=== PATIENT | male | born 1970 | race Caucasian/White ===

== ENCOUNTER 2017-09-24 19:01 | Inpatient (IN) | payer BC, OTHER ==
[~2017-09-24] VITALS: Ht 177.8 cm; Wt 62.3 kg
[2017-09-24 19:10] VITALS: BP_SYST 102
[2017-09-24] MEDS ORDERED: NACL 0.9% 1,000 ML IV ONE (21:09)
[2017-09-24] MEDS ORDERED: ALBUTEROL SULFATE 0.083% 2.5 MG/3 ML VIAL.NEB INH ONE (21:15)
[2017-09-24 21:39] LABS: HEMATOCRIT 41.7 % (36-54); HEMOGLOBIN 13.5 g/dL (14.0-18.0); MEAN CORPUSCULAR HEMOGLOBIN 30 pg (27-31); MEAN CORPUSCULAR HGB CONC 33 % (32-36); MEAN CORPUSCULAR VOLUME 92 fL (79.0-98.0); PLATELET COUNT (AUTO) 410 K/uL (130-430); RED BLOOD CELL COUNT(AUTO) 4.55 MIL/uL (4.2-6.2); RED CELL DISTRIBUTION WIDTH 13.1 % (9.0-15.0); WHITE BLOOD COUNT (AUTO) 23.5 K/uL (4.8-10.8)
[2017-09-24] MEDS ORDERED: ARTT OP (21:40)
[2017-09-24] MEDS ORDERED: LANS30CA56 PO (21:41)
[2017-09-24] MEDS ORDERED: CHLO473M5 MM (21:42)
[2017-09-24] MEDS ORDERED: GABA-533 PO (21:43)
[2017-09-24] MEDS ORDERED: LEVOFLOXACIN 500 MG/D5W 100 ML IV ONE (21:45)
[2017-09-24] MEDS ORDERED: VANCOMYCIN HCL 1,000 MG in NS 250 ML IV ONE (21:45)
[2017-09-24] MEDS ORDERED: B1/B1TAB5 PO (21:45)
[2017-09-24] MEDS ORDERED: [UNRECOGNIZED DRUG - CODE] PO (21:50)
[2017-09-24 21:52] LABS: CALCIUM 9.5 mg/dL (8.4-11.0); CREATININE 0.51 mg/dL (0.55-1.30); POTASSIUM 4.4 mmol/L (3.5-5.1)
[2017-09-24 21:58] LABS: ALBUMIN 2.9 g/dL (3.4-4.8); TOTAL BILIRUBIN 0.3 mg/dL (0.0-1.0)
[2017-09-24] MEDS ORDERED: VITA100T3 PO (21:59)
[2017-09-24] MEDS ORDERED: UBID50TA3 PO (22:02)
[2017-09-24] MEDS ORDERED: OMEG10006 PO (22:03)
[2017-09-24] MEDS ORDERED: RIVA20TA PO (22:04)
[2017-09-24] MEDS ORDERED: POLY17PO4 PO (22:05)
[2017-09-24] MEDS ORDERED: PROP20TA7 PO (22:06)
[2017-09-24] MEDS ORDERED: ACET-2165 PO ×2 (22:09→22:10)
[2017-09-24] MEDS ORDERED: MAGN400O4 PO (22:11)
[2017-09-24] MEDS ORDERED: DULR10 RC (22:13)
[2017-09-24] MEDS ORDERED: MECL12.584 PO (22:14)
[2017-09-24] MEDS ORDERED: VANCOMYCIN HCL 1000 MG/VIAL IV ONE (22:15)
[2017-09-24] MEDS ORDERED: LACT10SO6 PO (22:15)
[2017-09-24] MEDS ORDERED: ONDA4TAB5 PO (22:16)
[2017-09-24] MEDS ORDERED: [UNRECOGNIZED DRUG - CODE] IH (22:19)
[2017-09-24] MEDS ORDERED: HYDR-1189 PO (22:21)
[2017-09-24] MEDS ORDERED: CLON1TAB4 PO (22:22)
[2017-09-24] MEDS ORDERED: MAG-55 PO (22:22)
[2017-09-24] MEDS ORDERED: ZOLP5TAB2 PO (22:23)
[2017-09-24] MEDS ORDERED: ALBU2.5V7 INH (22:23)
[2017-09-24] MEDS ORDERED: [UNRECOGNIZED DRUG - OTHER] PO (22:24)
[2017-09-24 22:30] LABS: BAND % (MANUAL) 8 % (0-6); BASOPHILS % (MANUAL) 0 % (0-2); EOSINOPHILS % (MANUAL) 2 % (0-7); LYMPHOCYTES % (MANUAL) 5 % (20-46); MONOCYTES % (MANUAL) 13 % (0-11)
[2017-09-24] MEDS ORDERED: MILK OF MAGNESIA 30 ML UDC PO PRN (22:45)
[2017-09-24] MEDS ORDERED: MECLIZINE HCL 25 MG TABLET (ANITVERT) PO PRN (22:45)
[2017-09-24] MEDS ORDERED: TEARS ARTIFICIAL 15 ML DROPS OP PRN (22:45)
[2017-09-24] MEDS ORDERED: ONDANSETRON 4 MG ODT TAB PO PRN (22:45)
[2017-09-24] MEDS ORDERED: IPRATROPIUM/ALBUTEROL SULFATE 3 ML AMPUL.NEB INH PRN (22:45)
[2017-09-24] MEDS ORDERED: [UNRECOGNIZED DRUG - OTHER] PO PRN (22:45)
[2017-09-24] MEDS ORDERED: LACTULOSE 20 GM/30 ML UDC PO PRN (22:45)
[2017-09-24] MEDS ORDERED: MAG HYDROX PO PRN (22:45)
[2017-09-24] MEDS ORDERED: ZOLPIDEM TARTRATE 5 MG TABLET PO PRN (22:45)
[2017-09-24] MEDS ORDERED: AL HYDROX PO PRN (22:45)
[2017-09-24] MEDS ORDERED: HYDROcodone/ACETAMIN 5-325 MG TAB (NORCO/ VICODIN) PO PRN (22:45)
[2017-09-24] MEDS ORDERED: ACETAMINOPHEN 325 MG TABLET PO PRN (22:45)
[2017-09-24] MEDS ORDERED: SIMETH PO PRN (22:45)
[2017-09-24] MEDS ORDERED: BISACODYL 10 MG/SUPPOSITORY RC PRN (22:45)
[2017-09-24 23:10] VITALS: BP_SYST 95
[2017-09-25] VITALS (7 sets, daily range): BP systolic 84–110
[2017-09-25] MEDS: PROPRANOLOL HCL 10 MG TABLET (INDERAL) PO SCH ×3 (01:04→12:00)
[2017-09-25] MEDS: clonazePAM 0.5 MG TABLET PO PRN (01:04)
[2017-09-25] MEDS: POTASSIUM CHLORIDE 10 MEQ in NACL 0.9% 1,000 ML IV SCH ×2 (01:45→17:10)
[2017-09-25] MEDS: ACETAMINOPHEN 325 MG TABLET PO PRN ×2 (03:58→21:36)
[2017-09-25] MEDS ORDERED: KCL 20 mEq in 100 mL (PREMIX) 100 ML IV ONE (04:38)
[2017-09-25] MEDS: GABAPENTIN 400 MG CAPSULE PO SCH ×3 (06:41→21:34)
[2017-09-25 07:20] LABS: CALCIUM 9.1 mg/dL (8.4-11.0); CREATININE 0.33 mg/dL (0.55-1.30); POTASSIUM 3.9 mmol/L (3.5-5.1)
[2017-09-25 07:29] LABS: BASOPHILS # (AUTO) 0.2 K/uL (0.0-0.2); BASOPHILS % (AUTO) 0.8 % (0.0-2.0); EOSINOPHILS # (AUTO) 0.1 K/uL (0.0-0.4); EOSINOPHILS % (AUTO) 0.4 % (0.0-4.0); HEMATOCRIT 37.7 % (36-54); HEMOGLOBIN 12.3 g/dL (14.0-18.0); LYMPHOCYTES # (AUTO) 1.7 K/uL (1.0-5.5); LYMPHOCYTES % (AUTO) 8.5 % (20.5-51.5); MEAN CORPUSCULAR HEMOGLOBIN 30 pg (27-31); MEAN CORPUSCULAR HGB CONC 33 % (32-36); MEAN CORPUSCULAR VOLUME 91 fL (79.0-98.0); MONOCYTES # (AUTO) 1.8 K/uL (0.0-1.0); MONOCYTES % (AUTO) 8.9 % (1.7-9.3); NEUTROPHILS # (AUTO) 16.2 K/uL (1.8-7.7); NEUTROPHILS % (AUTO) 81.4 % (40.0-70.0); PLATELET COUNT (AUTO) 348 K/uL (130-430); RED BLOOD CELL COUNT(AUTO) 4.12 MIL/uL (4.2-6.2); RED CELL DISTRIBUTION WIDTH 12.9 % (9.0-15.0)
[2017-09-25] MEDS ORDERED: IPRATROPIUM/ALBUTEROL SULFATE 3 ML AMPUL.NEB INH PRN ×2 (07:30→16:00)
[2017-09-25 07:44] LABS: ALBUMIN 2.5 g/dL (3.4-4.8); TOTAL BILIRUBIN 0.3 mg/dL (0.0-1.0)
[2017-09-25] MEDS: IPRATROPIUM/ALBUTEROL SULFATE 3 ML AMPUL.NEB INH SCH ×3 (07:45→18:57)
[2017-09-25] MEDS ORDERED: NON-FORMULARY MEDICATION (Lansoprazole 30 MG) PO SCH (09:00)
[2017-09-25] MEDS ORDERED: NON-FORMULARY MEDICATION (Ubidecarenone (Coq10) 100 MG) PO SCH (09:00)
[2017-09-25] MEDS ORDERED: POLYETHYLENE GLYCOL 3350, 17 GM/ POWD.PACK PO SCH (09:00)
[2017-09-25] MEDS: PANTOPRAZOLE SODIUM 40 MG TAB PO SCH (09:30)
[2017-09-25] MEDS: CHLORHEXIDINE GLUCONATE 15 ML/DOSE, 480 ML MM SCH ×2 (09:30→21:34)
[2017-09-25] MEDS ORDERED: guaiFENesin ER 600 MG TAB PO ONE (12:30)
[2017-09-25] MEDS: RIVAROXABAN 10 MG TABLET PO SCH (17:10)
[2017-09-25] MEDS: ACETYLCYSTEINE 10% 4 ML VIAL (RT) INH SCH (18:59)
[2017-09-25] MEDS: LEVOFLOXACIN 500 MG/D5W 100 ML IV SCH (21:34)
[2017-09-25] MEDS: guaiFENesin ER 600 MG TAB PO SCH (21:35)
[2017-09-26] MEDS: clonazePAM 0.5 MG TABLET PO PRN ×2 (00:44→08:47)
[2017-09-26 01:43] VITALS: BP_SYST 109
[2017-09-26] MEDS ORDERED: KCL 20 mEq in 100 mL (PREMIX) 100 ML IV ONE (03:56)
[2017-09-26] MEDS: GABAPENTIN 400 MG CAPSULE PO SCH ×3 (05:41→21:15)
[2017-09-26 06:56] LABS: BASOPHILS % (AUTO) 0.2 % (0.0-2.0); EOSINOPHILS # (AUTO) 0.2 K/uL (0.0-0.4); EOSINOPHILS % (AUTO) 1.4 % (0.0-4.0); HEMATOCRIT 35.1 % (36-54); HEMOGLOBIN 11.4 g/dL (14.0-18.0); LYMPHOCYTES # (AUTO) 1.9 K/uL (1.0-5.5); LYMPHOCYTES % (AUTO) 13.6 % (20.5-51.5); MEAN CORPUSCULAR HEMOGLOBIN 30 pg (27-31); MEAN CORPUSCULAR HGB CONC 32 % (32-36); MEAN CORPUSCULAR VOLUME 92 fL (79.0-98.0); MONOCYTES # (AUTO) 1.2 K/uL (0.0-1.0); MONOCYTES % (AUTO) 8.8 % (1.7-9.3); NEUTROPHILS # (AUTO) 10.4 K/uL (1.8-7.7); PLATELET COUNT (AUTO) 336 K/uL (130-430); RED BLOOD CELL COUNT(AUTO) 3.81 MIL/uL (4.2-6.2); RED CELL DISTRIBUTION WIDTH 12.6 % (9.0-15.0); WHITE BLOOD COUNT (AUTO) 13.7 K/uL (4.8-10.8)
[2017-09-26 07:05] LABS: CALCIUM 8.8 mg/dL (8.4-11.0); CREATININE 0.32 mg/dL (0.55-1.30); POTASSIUM 4.1 mmol/L (3.5-5.1)
[2017-09-26 07:31] LABS: ALBUMIN 2.3 g/dL (3.4-4.8); TOTAL BILIRUBIN 0.3 mg/dL (0.0-1.0)
[2017-09-26] MEDS: guaiFENesin ER 600 MG TAB PO SCH ×2 (08:47→21:15)
[2017-09-26] MEDS: CHLORHEXIDINE GLUCONATE 15 ML/DOSE, 480 ML MM SCH ×2 (08:48→21:16)
[2017-09-26] MEDS: POTASSIUM CHLORIDE 10 MEQ in NACL 0.9% 1,000 ML IV SCH ×2 (08:48→17:37)
[2017-09-26] MEDS: PANTOPRAZOLE SODIUM 40 MG TAB PO SCH (08:48)
[2017-09-26 08:55] VITALS: BP_SYST 116
[2017-09-26] MEDS: ACETAMINOPHEN 325 MG TABLET PO PRN (11:30)
[2017-09-26] MEDS: IPRATROPIUM/ALBUTEROL SULFATE 3 ML AMPUL.NEB INH SCH ×3 (11:36→19:00)
[2017-09-26] MEDS: ACETYLCYSTEINE 10% 4 ML VIAL (RT) INH SCH ×3 (11:42→21:21)
[2017-09-26 12:12] VITALS: BP_SYST 118
[2017-09-26] MEDS ORDERED: PROPRANOLOL HCL 10 MG TABLET (INDERAL) PO ONE (13:00)
[2017-09-26 16:31] VITALS: BP_SYST 99
[2017-09-26] MEDS: RIVAROXABAN 10 MG TABLET PO SCH (17:37)
[2017-09-26] MEDS: LEVOFLOXACIN 500 MG/D5W 100 ML IV SCH (21:15)
[2017-09-26] MEDS ORDERED: POLYETHYLENE GLYCOL 3350, 17 GM/ POWD.PACK PO ONE (21:15)
[2017-09-26] MEDS: PROPRANOLOL HCL 10 MG TABLET (INDERAL) PO SCH (21:24)
[2017-09-27] MEDS: LEVALBUTEROL HCL 0.63 MG/3 ML VIAL.NEB INH SCH ×4 (01:00→20:03)
[2017-09-27 01:36] VITALS: BP_SYST 133
[2017-09-27] MEDS: ACETAMINOPHEN 325 MG TABLET PO PRN ×2 (04:50→22:22)
[2017-09-27] MEDS: POTASSIUM CHLORIDE 10 MEQ in NACL 0.9% 1,000 ML IV SCH ×2 (05:04→14:40)
[2017-09-27] MEDS: GABAPENTIN 400 MG CAPSULE PO SCH ×3 (05:05→22:18)
[2017-09-27] MEDS: PROPRANOLOL HCL 10 MG TABLET (INDERAL) PO SCH ×3 (05:16→22:18)
[2017-09-27 07:54] VITALS: BP_SYST 87
[2017-09-27] MEDS: CHLORHEXIDINE GLUCONATE 15 ML/DOSE, 480 ML MM SCH ×2 (09:07→22:17)
[2017-09-27] MEDS: guaiFENesin ER 600 MG TAB PO SCH ×2 (09:07→22:18)
[2017-09-27] MEDS: POLYETHYLENE GLYCOL 3350, 17 GM/ POWD.PACK PO SCH (09:07)
[2017-09-27] MEDS: PANTOPRAZOLE SODIUM 40 MG TAB PO SCH (09:07)
[2017-09-27] MEDS: ACETYLCYSTEINE 10% 4 ML VIAL (RT) INH SCH ×3 (11:08→20:03)
[2017-09-27 12:00] VITALS: BP_SYST 94
[2017-09-27 16:00] VITALS: BP_SYST 127
[2017-09-27] MEDS: RIVAROXABAN 10 MG TABLET PO SCH (17:54)
[2017-09-27] MEDS: LEVOFLOXACIN 500 MG/D5W 100 ML IV SCH (22:17)
[2017-09-28] MEDS: LEVALBUTEROL HCL 0.63 MG/3 ML VIAL.NEB INH SCH ×3 (01:00→13:53)
[2017-09-28] MEDS: ACETYLCYSTEINE 10% 4 ML VIAL (RT) INH SCH ×3 (01:00→13:53)
[2017-09-28 01:58] VITALS: BP_SYST 99
[2017-09-28] MEDS: GABAPENTIN 400 MG CAPSULE PO SCH ×2 (06:45→13:27)
[2017-09-28] MEDS: PROPRANOLOL HCL 10 MG TABLET (INDERAL) PO SCH ×2 (06:46→13:30)
[2017-09-28 07:50] VITALS: BP_SYST 125
[2017-09-28 07:57] LABS: BASOPHILS % (AUTO) 0.3 % (0.0-2.0); EOSINOPHILS # (AUTO) 0.3 K/uL (0.0-0.4); EOSINOPHILS % (AUTO) 3.4 % (0.0-4.0); HEMATOCRIT 37.1 % (36-54); HEMOGLOBIN 12.1 g/dL (14.0-18.0); LYMPHOCYTES # (AUTO) 1.7 K/uL (1.0-5.5); MEAN CORPUSCULAR HEMOGLOBIN 30 pg (27-31); MEAN CORPUSCULAR HGB CONC 33 % (32-36); MEAN CORPUSCULAR VOLUME 91 fL (79.0-98.0); MONOCYTES # (AUTO) 0.7 K/uL (0.0-1.0); MONOCYTES % (AUTO) 7.3 % (1.7-9.3); NEUTROPHILS # (AUTO) 6.7 K/uL (1.8-7.7); PLATELET COUNT (AUTO) 421 K/uL (130-430); RED BLOOD CELL COUNT(AUTO) 4.08 MIL/uL (4.2-6.2); RED CELL DISTRIBUTION WIDTH 12.5 % (9.0-15.0); WHITE BLOOD COUNT (AUTO) 9.4 K/uL (4.8-10.8)
[2017-09-28] MEDS: CHLORHEXIDINE GLUCONATE 15 ML/DOSE, 480 ML MM SCH (09:56)
[2017-09-28] MEDS: guaiFENesin ER 600 MG TAB PO SCH (09:56)
[2017-09-28] MEDS: POLYETHYLENE GLYCOL 3350, 17 GM/ POWD.PACK PO SCH (09:56)
[2017-09-28] MEDS: PANTOPRAZOLE SODIUM 40 MG TAB PO SCH (09:56)
[2017-09-28 12:18] VITALS: BP_SYST 102
[2017-09-28 15:32] VITALS: BP_SYST 114
[2017-09-28 16:00] VITALS: BP_SYST 118
== END 2017-09-28 17:10 | DRG 871 ==
LOC: SED 19:01 → STU 22:34 → SMU 09-28 08:37
PROVIDERS: ADMIT Internal Medicine; ATTEND Internal Medicine
DX: A41.9 Sepsis, unspecified organism (principal); G82.50 Quadriplegia, unspecified; J69.0 Pneumonitis due to inhalation of food and vomit; E43 Unspecified severe protein-calorie malnutrition; G61.0 Guillain-Barre syndrome; J96.10 Chronic respiratory failure, unspecified whether with hypoxia or hypercapnia; J90 Pleural effusion, not elsewhere classified; Z68.1 Body mass index [BMI] 19.9 or less, adult; Z93.0 Tracheostomy status; I10 Essential (primary) hypertension; E78.5 Hyperlipidemia, unspecified; Z87.01 Personal history of pneumonia (recurrent); Z87.440 Personal history of urinary (tract) infections; Z79.899 Other long term (current) drug therapy
CPT/HCPCS: 36415; 36600; 71010; 80053; 82803-TC; 83605; 85007; 85025; 85027; 86710; 87040-TC; 87081; 92610-GN; 94640; 94760; 96361; 96365; 96368; 97110-GP; 97530-GP; 99291; J1956; J3370; J3480; J7030; J7060